=== PATIENT | male | born 1935 | race Caucasian/White ===

== ENCOUNTER 2016-12-13 17:13 | Observation (INO) | payer BC, MEDICARE, OTHER ==
[2016-12-13 17:54] LABS: ABSOLUTE NEUTROPHIL COUNT 3.9 K/mm3 (1.8-7.7); BASO % 0.4 % (0.2-1.0); EOS % 0.2 % (0.9-2.9); HEMATOCRIT 35.3 % (32.0-52.0); HEMOGLOBIN 11.7 gm/l (14.0-18.0); IMM NEUT% 0.2 % (0-1); LYMPH # 0.8 (1.0-4.8); LYMPH % 15.5 % (15-45); MEAN CELL VOLUME 89.4 fl (80.0-94.0); MEAN CORPUSCULAR HEMOGLOBIN 29.6 pg (27.0-31.0); MEAN CORPUSCULAR HGB CONC 33.1 g/dl (33.0-37.0); MONO # 0.3 (0.0-0.8); MONO % 5.4 % (4-12); NEUT % 78.3 % (43-75); PLATELET COUNT 101 K/mm3 (130-400); RED CELL DISTRIBUTION WIDTH 13.2 % (11.5-14.5)
[2016-12-13] MEDS ORDERED: SODIUM CHLORIDE 0.9% 1,000 ML ONE (17:57)
[2016-12-13] MEDS ORDERED: PANTOPRAZOLE SODIUM 40 MG VIAL IV ONE (17:57)
[2016-12-13] MEDS ORDERED: ONDANSETRON 4 MG/2ML 2 ML VIAL ONE (17:57)
[2016-12-13 18:15] LABS: ALB/GLOB RATIO 1.7 (>1.0); ALBUMIN 3.8 gm/dL (3.5-5.7); C-REACTIVE PROTEIN 0.6 mg/dl (<1.0); CALCIUM 8.8 mg/dL (8.6-10.3)
--- NOTE | 2016-12-13 20:09 | RAD ---
12/13/2016 8:05 PM CHEST-AP BEDSIDE History: Weakness and anorexia for 3 days Comparison: None Findings: Single AP view of the chest is obtained. The lungs are clear with out effusion or pneumothorax. The cardiomediastinal silhouette is unremarkable.. The osseous structures demonstrate diffuse osteopenia. 2-lead left-sided pacemaker is present with leads terminating in expected regions of the right atrium and ventricle. IMPRESSION: No acute intrathoracic process.
[2016-12-13] MEDS ORDERED: ENOXAPARIN SODIUM 40 MG/0.4 ML SYRINGE SUB-Q SCH (20:51)
[2016-12-13] MEDS ORDERED: BISACODYL 5 MG TABLET.EC PO PRN (20:51)
[2016-12-13] MEDS ORDERED: BLISTEX LIPSTICK 1 EACH TP PRN (20:51)
[2016-12-13] MEDS ORDERED: MENTHOL/CETYLPYRD 1 EACH LOZENGE PO PRN (20:51)
[2016-12-13] MEDS ORDERED: SODIUM CHLORIDE 0.9% 100 ML IV PRN (20:51)
[2016-12-13] MEDS ORDERED: ACETAMINOPHEN 325 MG TABLET PO PRN (20:51)
[2016-12-13] MEDS ORDERED: BISACODYL 10 MG SUP PR PRN (20:51)
[2016-12-13] MEDS ORDERED: MAGNESIUM HYDROXIDE 30 ML UDCUP PO PRN (20:51)
[2016-12-13 20:59] VITALS: BMI 17.9
[2016-12-13] MEDS: DOCUSATE SODIUM 100 MG CAPSULE PO SCH (21:00)
[2016-12-13] MEDS ORDERED: PUMP TUBING ONE (21:01)
[2016-12-13] MEDS: SODIUM CHLORIDE 0.9% 1,000 ML IV SCH (21:08)
[2016-12-13] MEDS ORDERED: ENOXAPARIN SODIUM 30 MG/0.3 ML SYRINGE SUB-Q SCH (21:15)
[2016-12-14 06:25] LABS: CALCIUM 7.5 mg/dL (8.6-10.3)
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
[2016-12-14] MEDS: SODIUM CHLORIDE 0.9% 1,000 ML IV SCH (07:18)
[2016-12-14] MEDS: DOCUSATE SODIUM 100 MG CAPSULE PO SCH (09:00)
[2016-12-14 11:04] LABS: URINE BILIRUBIN NEGATIVE (NEGATIVE); URINE BLOOD TRACE (NEGATIVE); URINE GLUCOSE (UA) NEGATIVE (NEGATIVE); URINE LEUKOCYTE ESTERASE NEGATIVE (NEGATIVE); URINE NITRITE NEGATIVE (NEGATIVE); URINE PROTEIN 1+ (NEGATIVE); URINE UROBILINOGEN NORMAL (0-1 mg/dl)
[2016-12-14 11:06] LABS: URINE APPEARANCE CLOUDY; URINE COLOR YELLOW
[2016-12-14] MEDS ORDERED: SODIUM CHLORIDE 0.9% 1,000 ML IV SCH (11:15)
[2016-12-14 11:59] LABS: URINE AMORPHOUS SEDIMENT 3+; URINE BACTERIA FEW; URINE EPITHELIAL CELLS 0-1 /hpf; URINE RBC 0-1 /hpf; URINE WBC 0-1 /hpf
--- NOTE | 2016-12-14 12:41 | DS ---
[facility] [id number] DATE OF ADMISSION: 12/13/2016 DATE OF DISCHARGE: 12/14/2016 DISCHARGE DIAGNOSES: 1. Acute kidney injury associated with diarrhea causing generalized weakness. 2. Mild to moderate malnutrition. 3. Stable coronary artery disease. 4. Benign prostatic hypertrophy. 5. Generalized osteoarthritis with chronic joint pain. TO SUMMARIZE THE ADMISSION AND HOSPITAL COURSE: The patient is an 83-year-old male with medical problems as listed above who presented with complaints of malaise, weakness, poor appetite and diarrheal symptoms worse over the last 3 to 4 days. He had evidence of acute kidney injury on admission with a creatinine of 1.9. He has chronic stage III kidney disease with a baseline creatinine around 1.3. He was found to have concentrated urine and generalized weakness. He was admitted and hydrated. He had improvement in his creatinine to 1.4. He was evaluated by physical therapy and occupational therapy and felt to be at his baseline. He improved more quickly than expected and was felt to be medically stable for discharge on December 14. He was tolerating a regular diet and standby caregiver assist with activity. PHYSICAL EXAMINATION: VITAL SIGNS: His vitals at discharge showed a temperature of 98.6, pulse 61, blood pressure 111/62, respirations 20, oxygen saturation is 100% on room air, body mass index 17.9, weight 59.87 kg. GENERAL: This is a thin elderly male in no acute distress. HEENT: Unremarkable. LUNGS: Clear to auscultation bilaterally. CARDIOVASCULAR: Reveals a regular rate and rhythm without a murmur. ABDOMEN: Soft, nontender, nondistended with positive bowel sounds. EXTREMITIES: No peripheral edema. LABORATORY STUDIES: Showed a CBC with a white count of 5, hemoglobin of 11.7, platelet count of 101,000. Lactate was normal. Chemistry profile showed a sodium 135, potassium 4.3, BUN of 31, creatinine of 1.4 down from 1.9 on admission. He had borderline troponin elevations of 0.06 and 0.07 felt to be due to his chronic kidney disease. DIET: He will be discharging home on a regular diet. FOLLOW UP: He will be referred to [facility] for physical therapy and occupational therapy. Follow up referral will be made to the [facility] in [place]. DISCHARGE MEDICATIONS: He will be discharging on his usual home medications which include: 1. Uroxatral 10 mg daily. 2. Acetaminophen 325 mg every 4 to 6 hours as needed for pain. 3. He can take Advil, but use it sparingly 200 mg every 6 hours as needed for additional pain symptoms. CODE STATUS: Full code. ALLERGIES: He has no known drug allergies. JOB: [id number] CC: [facility] [place]
[2016-12-14 13:22] VITALS: BP 112/67
[2016-12-14] MEDS ORDERED: ENOXAPARIN SODIUM 40 MG/0.4 ML SYRINGE SUB-Q SCH (21:00)
== END 2016-12-14 15:24 | disposition home or self-care (01) ==
LOC: ED 17:13 → MS 19:35 → EDBD 20:51 → OBSVTOIN 20:51 → INTOOBSV 20:51
PROVIDERS: ADMIT Family Medicine; ATTEND Family Medicine
DX: N17.9 Acute kidney failure, unspecified (principal); E46 Unspecified protein-calorie malnutrition; I25.10 Atherosclerotic heart disease of native coronary artery without angina pectoris; N40.0 Benign prostatic hyperplasia without lower urinary tract symptoms; M19.90 Unspecified osteoarthritis, unspecified site; E86.0 Dehydration
CPT/HCPCS: 83605; 83690; 82150; 86141; 85025; 87040; 80048; 80053; 85651; 84484 ×3; 81001; 36415 ×3; 71010; 97161; 96375; 99285 ×2; 96374; 96361 ×3; 93005; 96372; A9270; J1650; C9113; J2405; J7030 ×3; G0378 ×2